=== PATIENT | female | born 1970 | race Caucasian/White ===

== ENCOUNTER 2016-11-04 16:38 | Emergency (ER) | payer MEDICAID ==
[2015-01-01 07:03] VITALS: BMI 66.3
[~2016-11-04 16:38] MED LIST: CELEXA20 MG PO; GLIPIZIDE10 MG PO; GLUCOPHAGE1000 MG PO; GLUCOTROL 5 MG T5 MG PO; ISOSORBIDE DINI30 MG PO; LASIX20 MG PO; NEURONTIN 300300 MG PO; PRAVACHOL40 MG PO; XANAX0.5 MG PO; ZESTRIL40 MG PO
[2016-11-04 18:42] LABS: BASOPHILS 0.2 % (0.0-2.0); EOSINOPHILS 2.3 % (0-7); HEMATOCRIT 40.6 % (36.0-48.0); HEMOGLOBIN 13.4 g/dL (12-16); IMMATURE GRANULOCYTES 0.3 % (0-5); LYMPHOCYTES 29.9 % (15-50); MCH 30.7 pg (26.0-34.0); MCV 92.9 fL (80.0-100.0); MEAN PLATELET VOLUME 10.4 fL (7.4-10.4); MONOCYTES 4.5 % (2-11); NEUTROPHILS 62.8 % (40-80); RBC 4.37 10x6/uL (4.00-5.40); RDW 12.1 % (11.5-14.5); WBC 9.3 10x3/uL (4.8-10.8)
[2016-11-04 18:53] LABS: PLATELET COUNT 205 10x3/uL (130-400)
[2016-11-04 18:57] LABS: ALBUMIN 3.6 g/dL (3.4-5.0); ALKALINE PHOSPHATASE 57 U/L (46-116); ALT (SGPT) 68 U/L (10-68); BILIRUBIN - TOTAL 0.53 mg/dL (0.2-1.3); CALC OSMOLALITY 275 mosm/kg (275-300); CALCIUM 8.9 mg/dL (8.5-10.1); CARBON DIOXIDE 30.4 mmol/L (21.0-32.0); CHLORIDE - SERUM 102 mmol/L (98-107); CREATININE - SERUM 0.5 mg/dL (0.6-1.3); GLUCOSE 167 mg/dL (74-106); POTASSIUM - SERUM 4.2 mmol/L (3.5-5.1); PROTEIN - SERUM 7.5 g/dL (6.4-8.2); SODIUM 137 mmol/L (136-145); UREA NITROGEN 7 mg/dL (7-18); eGFR NON AFRICAN AMERICAN > 90 mL/min (90-120)
== END 2016-11-04 22:06 | disposition home or self-care (01) ==
LOC: D.ER 16:38
PROVIDERS: Emergency Medicine
DX: K46.9 Unspecified abdominal hernia without obstruction or gangrene (principal); E11.9 Type 2 diabetes mellitus without complications; I10 Essential (primary) hypertension

== ENCOUNTER 2017-04-05 07:31 | Day surgery (SDC) | payer MEDICAID ==
[2017-04-02 13:10] LABS: HEMATOCRIT 37.9 % (36.0-48.0); HEMOGLOBIN 12.3 g/dL (12-16); MCHC 32.5 g/dL (31.0-37.0); MCV 92.4 fL (80.0-100.0); MEAN PLATELET VOLUME 10.5 fL (7.4-10.4); RBC 4.1 10x6/uL (4.00-5.40); WBC 8.5 10x3/uL (4.8-10.8)
[2017-04-02 13:21] LABS: CALC OSMOLALITY 289 mosm/kg (275-300); CALCIUM 8.5 mg/dL (8.5-10.1); CARBON DIOXIDE 27.2 mmol/L (21.0-32.0); CHLORIDE - SERUM 101 mmol/L (98-107); CREATININE - SERUM 0.6 mg/dL (0.6-1.3); POTASSIUM - SERUM 3.6 mmol/L (3.5-5.1); SODIUM 139 mmol/L (136-145); UREA NITROGEN 12 mg/dL (7-18); eGFR NON AFRICAN AMERICAN > 90 mL/min (90-120)
[2017-04-02 13:39] LABS: GLUCOSE 308 mg/dL (74-106)
[~2017-04-05] VITALS: Ht 165.1 cm; Wt 193.7 kg
[~2017-04-05 07:31] MED LIST changes: +FENOFIBRATE160 MG PO; +GLIMEPIRIDE4 MG PO; +NAPROSYN500 MG PO
[2017-04-05 08:19] VITALS: BP 129/70; Ht 165.1 cm; Wt 193.7 kg
[2017-04-05] MEDS ORDERED: NORCO 7.5/325 T1 TA1 PO (14:31)
--- NOTE | 2017-04-05 17:50 | NUR ---
1520- PT BACK TO ROOM, SITTING UP WITH HOB ELEVATED. VSS. FAMILY AT BEDSIDE. DRESSINGS X5 INCISION SITES WITH STERI-STRIPS INTACT. 1550- TOLERATING ICE AND WATER. REPORTING PAIN BUT REFUSING PAIN MEDS AT THIS TIME. 1620- PAIN LESSENING. PT ON RA WITH SAT >92%. VSS. FAMILY CONTINUES AT BEDSIDE. 1700- UP TO BR, VOIDED WITHOUT DIFFICULTY. 1715- IV D/C'D, PT TOLERATED. CATHETER INTACT. PRESSURE HELD. TELFA GAUZE USED WITH MEDAPORE TAPE, USED A SMALL PRESSURE BANDAGE. 1730- DISCHARGE INSTRUCTIONS COMPLETED, PT AND FAMILY VERBALIZES UNDERSTANDING. PAPERWORK SIGNED. 1740- PT DISCHARGED VIA WHEELCHAIR WITH FAMILY.
--- NOTE | 2017-04-06 16:14 | OP ---
PATIENT NAME: BOYD AVILA MEDICAL RECORD: [id number] :70 LOCATION:D.OPS ADMISSION DATE: SURGEON: LUIS NERI MD OPERATION DATE: 04/05/17 DATE OF OPERATION: 04/05/2017 SURGEON: Luis Neri MD. PREOPERATIVE DIAGNOSES: 1. Recurrent incarcerated incisional hernia. 2. Morbid obesity. 3. BMI of 60-69. 4. Hypertension. 5. Diabetes. POSTOPERATIVE DIAGNOSES: 1. Recurrent incarcerated incisional hernia. 2. Morbid obesity. 3. BMI 60-69. 4. Hypertension. 5. Diabetes. PROCEDURE PERFORMED: 1. Laparoscopic incarcerated recurrent incisional hernia repair with mesh. 2. Laparoscopic lysis of adhesions. ANESTHESIA: General. COMPLICATIONS: None. SPECIMENS: Gallstones. ESTIMATED BLOOD LOSS: 50 cc. COMPLICATIONS: None. OPERATIVE COURSE: After consent was obtained, the patient was taken to the operating room and placed in the supine position on the operating table. Next, general anesthesia was given via endotracheal intubation after a timeout was performed that confirmed the correct patient and procedure. The abdomen was then prepped and draped in typical sterile fashion. Three Ioban dressings were placed to cover the entire abdominal cavity. Next, local anesthesia was injected in the left upper quadrant at [facility]. Using a 5-mm bladeless optical trocar, the abdomen was entered under direct laparoscopic vision. Adequate pneumoperitoneum was achieved. The abdominal cavity was inspected. There was no evidence of bowel injury. No evidence of bleeding. The difficulty of case was profound. The patient was super morbidly obese. This was her second recurrent incisional hernia repair. The patient had extensive intra-abdominal adhesions. A second trocar was placed in the left lateral quadrant under direct laparoscopic vision. Greater than an hour and a half of time was spent performing laparoscopic lysis of adhesions with sharp scissor dissection as well as electrocautery. A third 5-mm trocar was then placed in the left lower quadrant. As laparoscopic lysis of adhesions was continued, 2 additional 5-mm trocars were placed into the right side, one right upper OPERATIVE REPORT [id number] BOYD AVILA quadrant trocar, and one right lateral quadrant trocar. Again, a full lysis of adhesions was performed. There was a recurrent hernia at the right lateral edge of the mesh. The hernia sac was reduced. At this time, it was decided to close the defect primarily. A small incision was made in the skin overlying the hernia defect using a combination of #2 nylon and #1 Prolene and Avinash-Ari suture passer. The hernia defect was closed. Sutures were passed with a Avinash-Ari suture passer under direct laparoscopic vision. With the hernia defect closed, a 4 x [address] mesh with Echo positioning system was placed into the abdomen. The Echo positioning system was grasped with a Avinash-Ari. The positioning system was inflated and the mesh was seated against the anterior abdominal wall, allowing for appropriate 5-7 cm overlap of the hernia defect. The mesh was then fixated to the anterior abdominal wall using the OptiFix tacking device. On the medial edge, the mesh was tacked to the previously placed abdominal wall mesh. With the mesh firmly against the abdominal wall, the positioning system was removed. Through the 11-mm trocar, a second row of tacks was placed in a double crown fashion. At this time, the abdominal cavity was copiously irrigated and suctioned. Careful attention was paid to hemostasis, which was obtained using electrocautery. A large gallstone was identified in the omentum. It was placed into an EndoCatch bag and removed through the 11-mm trocar and sent for permanent pathology. Again, the abdominal cavity was copiously irrigated and suctioned. Careful attention was paid to hemostasis. At this time, there is no evidence of bowel injury. No evidence of bleeding. The mesh was nicely positioned against the intra-abdominal wall. At this time, all remaining instruments were removed. The abdomen was desufflated. Trocars were removed. Skin was closed with 4 Monocryl, Mastisol and Steri-Strips. At the end of the case, all needle and instrument counts were correct. No complications occurred. The patient was extubated and transferred to the PACU in stable condition. TRANSINT:[id number] Voice Confirmation ID: [id number] DOCUMENT ID: [id number] LUIS NERI MD at 1614 CC: [id number] DICTATION DATE: 04/05/17 144 BEE ROBBER: 04/05/176 [facility] 04/05/17 [id number] [place] [address]
== END 2017-04-05 17:40 | disposition home or self-care (01) ==
LOC: D.OPS 07:31 → D.PAN 09:45 → D.OPS 17:40
PROVIDERS: Anesthesiology
DX: K43.0 Incisional hernia with obstruction, without gangrene (principal); K66.0 Peritoneal adhesions (postprocedural) (postinfection); Z01.812 Encounter for preprocedural laboratory examination; E66.01 Morbid (severe) obesity due to excess calories; Z68.44 Body mass index [BMI] 60.0-69.9, adult; I10 Essential (primary) hypertension; E11.9 Type 2 diabetes mellitus without complications

== ENCOUNTER → 2021-02-19 08:20 | Outpatient (CLI) | payer MEDICAID ==
[2017-04-05 08:19] VITALS: BMI 71.2
[~2021-02-19 08:20] MED LIST changes: +NORCO 7.5/325 T1 TA1 PO
== END | disposition home or self-care (01) ==
LOC: D.CT 08:20
PROVIDERS: ATTEND General Practice
DX: K46.9 Unspecified abdominal hernia without obstruction or gangrene (principal)